=== PATIENT | male | born 1945 | race Caucasian/White ===

== ENCOUNTER 2021-04-03 08:59 | Day surgery (SDC) | payer MEDICARE, BC ==
[2021-04-03] MEDS: Lactated Ringers 1,000 ML IV SCH (09:25)
[2021-04-03] MEDS ORDERED: Sodium Chloride 0.9% 10 ML Syringe FLUSH PRN (09:30)
[2021-04-03] MEDS ORDERED: ceFAZolin 1 GM Vial ONE (10:05)
[2021-04-03] MEDS ORDERED: Midazolam 1 MG/ML 2 ML SDV ONE (10:05)
[2021-04-03] MEDS ORDERED: Propofol 200 MG/20 ML SDV ONE (10:05)
[2021-04-03] MEDS ORDERED: Ketamine 200 MG/20 ML MDV ONE (10:58)
[2021-04-03] MEDS ORDERED: Bupivacaine 0.5%/EPINEPHrine 1:200,000 30 ML SDV ONE (10:59)
[2021-04-03 12:27] VITALS: BP 146/66; PULSE 62
--- NOTE | 2021-04-03 13:38 | PCM.OPNOTE ---
- General Post-Op/Procedure Note Date of Surgery/Procedure: 04/03/21 Operative Procedure(s): Internal and external hemorrhoidectomy Findings: Moderately enlarged external hemorrhoid at 7:00 position and moderately enlarged internal hemorrhoids at the 3:00 position. Procedure performed was internal and external hemorrhoidectomies. Anesthesia Technique: MAC Primary Surgeon: Aiden Murrieta Condition: Good Free Text/Narrative:: Preoperative diagnosis: Moderately enlarged external and internal hemorrhoids. Bleeding hemorrhoids. Postoperative diagnosis: Same Procedure performed: External and internal hemorrhoidectomy. Informed consent was obtained from the patient regarding his procedures. All possible competitions were thoroughly discussed. He understands and wishes to proceed. The patient was taken the operating room and kept in the lithotomy position after being given a satisfactory general anesthetic by the physician gynecologist. Genitals were thoroughly prepped and draped usual fashion. A self-retaining retractor was placed into the anorectal canal. A large internal hemorrhoid was identified at the 7:00 position, and alarge external hemorrhoid is identified at the 3:00 position. A clamp was placed underneath the external hemorrhoid which was excised. The mucosal cutaneous junction was sutured with 0 Polysorb suture. Next, the internal hemorrhoid was removed in the same fashion by applying a clamp and excising the internal hemorrhoid and ligating pedicles with 0 Polysorb suture. Inspection revealed no active bleeding from either of the 2 hemorrhoidectomy sites. The speculum was removed. Sterile Vaseline pack was placed for hemostasis. The patient tolerated the procedure well. No complications were encountered. Blood loss was negligible. He was transferred to the recovery room in excellent condition. Postoperatively, we will observe him for few hours. The rectal packing will be removed. The patient will be then discharged to be seen in a.m.
== END 2021-04-03 14:10 | disposition home or self-care (01) ==
LOC: KA.SDS 08:59
PROVIDERS: ATTEND Family Medicine
DX: I86.8 Varicose veins of other specified sites (principal); K64.8 Other hemorrhoids; K64.4 Residual hemorrhoidal skin tags; E78.5 Hyperlipidemia, unspecified; I10 Essential (primary) hypertension; J44.9 Chronic obstructive pulmonary disease, unspecified; E66.9 Obesity, unspecified; Z98.890 Other specified postprocedural states; Z79.899 Other long term (current) drug therapy; Z79.82 Long term (current) use of aspirin; Z88.8 Allergy status to other drugs, medicaments and biological substances; Z91.030 Bee allergy status; Z91.048 Other nonmedicinal substance allergy status; Z87.891 Personal history of nicotine dependence; Z68.34 Body mass index [BMI] 34.0-34.9, adult
CPT/HCPCS: 00902; 88304; J0690; J2250; J2704; J7120

== ENCOUNTER 2021-12-11 08:19 | Day surgery (SDC) | payer MEDICARE, BC ==
[~2021-12-11 08:19] MED LIST: Lactated Ringers 1,000 ML IV SCH
[2021-12-11] MEDS ORDERED: Midazolam 1 MG/ML 2 ML SDV ONE (08:59)
[2021-12-11] MEDS ORDERED: Propofol 200 MG/20 ML SDV ONE (08:59)
[2021-12-11 12:09] VITALS: BP 162/77; PULSE 66
== END 2021-12-11 11:12 | disposition home or self-care (01) ==
LOC: KA.SDS 08:19
PROVIDERS: ATTEND Family Medicine
DX: K57.31 Diverticulosis of large intestine without perforation or abscess with bleeding (principal); K64.8 Other hemorrhoids; I10 Essential (primary) hypertension; E78.5 Hyperlipidemia, unspecified; K21.9 Gastro-esophageal reflux disease without esophagitis; J44.9 Chronic obstructive pulmonary disease, unspecified; E66.9 Obesity, unspecified; Z98.890 Other specified postprocedural states; Z79.899 Other long term (current) drug therapy; Z79.82 Long term (current) use of aspirin; Z88.8 Allergy status to other drugs, medicaments and biological substances; Z91.030 Bee allergy status; Z68.35 Body mass index [BMI] 35.0-35.9, adult; Z87.891 Personal history of nicotine dependence
CPT/HCPCS: 00812; J2250; J2704; J7120